=== PATIENT | female | born 1995 | race Two or more races ===

== ENCOUNTER 2018-11-29 05:10 | Emergency (ER) | payer SELFPAY ==
[~2018-11-29] VITALS: Ht 162.6 cm; Wt 55.3 kg
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
[2018-11-29] MEDS ORDERED: IV NS 0.9% 500 ML BAG IV ONE (07:00)
[2018-11-29 07:10] LABS: BASOPHILS # (AUTO) 0.1 /CMM (0.0-0.2); BASOPHILS % (AUTO) 0.8 % (0.0-2.0); EOSINOPHILS % (AUTO) 0.6 % (0.0-6.0); HEMATOCRIT 38 % (33-45); LYMPHOCYTES % (AUTO) 24.6 % (20.0-44.0); MEAN CORPUSCULAR HGB CONC 32 g/dl (31.0-36.0); MEAN CORPUSCULAR VOLUME 69 fL (82-100); MONOCYTES # (AUTO) 0.4 /CMM (0.1-1.30); MONOCYTES % (AUTO) 5.3 % (2.0-12.0); NEUTROPHILS # (AUTO) 5.6 /CMM (1.8-8.9); NEUTROPHILS % (AUTO) 68.7 % (43.0-81.0); PLATELET COUNT (AUTO) 264 /CMM (150-450); WHITE BLOOD COUNT (AUTO) 8.2 K/uL (4.3-11.0)
[2018-11-29 07:14] LABS: CALCIUM, SERUM 8.8 mg/dL (8.5-10.1); POTASSIUM 4.3 mmol/L (3.5-5.1)
[2018-11-29 07:19] LABS: ALBUMIN 3.8 g/dL (3.4-5.0); BILIRUBIN,DIRECT 0.1 mg/dL (0.0-0.2); BILIRUBIN,TOTAL 0.3 mg/dL (0.2-1.0); TOTAL PROTEIN, SERUM 7.8 g/dL (6.4-8.2)
--- NOTE | 2018-11-29 07:25 | NUR ---
PT ENDORSED TO [facility] FOR HYACINTH
[2018-11-29] MEDS ORDERED: CT SWABBABLE VALVE TRANS SET 1 EA INFUS.SET MC ONE (07:43)
[2018-11-29] MEDS ORDERED: IOHEXOL-300 100 ML VIAL IV ONE ×3 (07:43→08:00)
[2018-11-29] MEDS ORDERED: IV NS 0.9% 250 ML IV ONE (07:43)
--- NOTE | 2018-11-29 08:54 | NUR ---
IV removed. Catheter intact and site benign. Pressure and 4x4 applied to site. No bleeding noted. Patient discharged to home in stable condition. Written and verbal after care instructions given. Patient verbalizes understanding of instruction.
[2018-11-29 08:56] VITALS: BP 100/60
== END 2018-11-29 08:56 | disposition home or self-care (01) ==
LOC: ER 05:12
DX: S93.491A Sprain of other ligament of right ankle, initial encounter (principal); S70.212A Abrasion, left hip, initial encounter; V49.59XA Passenger injured in collision with other motor vehicles in traffic accident, initial encounter; Y93.89 Activity, other specified; Y92.413 State road as the place of occurrence of the external cause; Y99.8 Other external cause status
CPT/HCPCS: 36415; 73610; 74177; 80048; 80076; 84702; 85025; 85730; 86850; 99284; J7040; J7050; Q9967 ×3